=== PATIENT | female | born 1945 | race Caucasian/White ===

== ENCOUNTER → 2018-09-23 | Outpatient (CLI) | payer OTHER | LOC: RAD 08:43 | DX: R91.8 Other nonspecific abnormal finding of lung field (principal); R07.89 Other chest pain; Z88.8 Allergy status to other drugs, medicaments and biological substances; Z88.0 Allergy status to penicillin; Z88.2 Allergy status to sulfonamides ==

== ENCOUNTER → 2020-01-05 | Outpatient (CLI) | payer OTHER | LOC: SJCVC 14:12 | PROVIDERS: ATTEND Internal Medicine Cardiovascular Disease | DX: R07.9 Chest pain, unspecified (principal); R93.1 Abnormal findings on diagnostic imaging of heart and coronary circulation; E78.5 Hyperlipidemia, unspecified; I25.10 Atherosclerotic heart disease of native coronary artery without angina pectoris; I10 Essential (primary) hypertension; Z79.82 Long term (current) use of aspirin; Z79.899 Other long term (current) drug therapy; Z82.49 Family history of ischemic heart disease and other diseases of the circulatory system ==

== ENCOUNTER → 2020-01-13 | Outpatient (CLI) | payer OTHER | LOC: SJCVCIMAG 07:09 | PROVIDERS: ATTEND Internal Medicine Cardiovascular Disease | DX: I08.1 Rheumatic disorders of both mitral and tricuspid valves (principal); E78.5 Hyperlipidemia, unspecified; R93.1 Abnormal findings on diagnostic imaging of heart and coronary circulation ==